=== PATIENT | female | born 1970 | race Two or more races ===

== ENCOUNTER 2018-03-19 10:00 | Emergency (ER) | payer OTHER ==
[2018-03-19 10:15] VITALS: BP 128/78; PULSE 87; TEMP 97.5; BMI 25.6
[2018-03-19] MEDS ORDERED: TETANUS AND DIPHTHERIA TOXOID 0.5 ML DISP.SYRIN IM ONE (11:30)
--- NOTE | 2018-03-19 11:34 | PDOC ---
History of Present Illness <Deshawn Mills - Last Filed: 03/19/18 11:34> <Janeen Ha - Last Filed: 03/19/18 11:50> - General Chief Complaint: Laceration Stated Complaint: LACERATION Time Seen by Provider: 03/19/18 10:39 Past History - Past Medical History COPD: No Other medical history: Pt denies - Suicide/Smoking/Psychosocial Hx Smoking History: Never smoked Have you smoked in the past 12 months: No Information on smoking cessation initiated: No Hx Alcohol Use: No Drug/Substance Use Hx: No Substance Use Type: None <Deshawn Mills - Last Filed: 03/19/18 11:34> <Janeen Ha - Last Filed: 03/19/18 11:50> - Past Medical History Allergies/Adverse Reactions: Allergies Allergy/AdvReac Type Severity Reaction Status Date / Time No Known Allergies Allergy Verified 03/19/18 10:10 Home Medications: Ambulatory Orders NK [No Known Home Medication] 02/19/16 *Physical Exam - Vital Signs Last Vital Signs Temp Pulse Resp BP Pulse Ox 97.5 F L 87 18 128/78 100 03/19/18 10:12 03/19/18 10:12 03/19/18 10:12 03/19/18 10:12 03/19/18 10:12 <Deshawn Mills - Last Filed: 03/19/18 11:34> - Vital Signs Last Vital Signs Temp Pulse Resp BP Pulse Ox 97.5 F L 87 18 128/78 100 03/19/18 10:12 03/19/18 10:12 03/19/18 10:12 03/19/18 10:12 03/19/18 10:12 <Janeen Ha - Last Filed: 03/19/18 11:50> Medical Decision Making - Medical Decision Making 03/19/18 11:49 pt sutured by ER resident Deshawn supervised by . <Janeen Ha - Last Filed: 03/19/18 11:50> *DC/Admit/Observation/Transfer <Deshawn Mills - Last Filed: 03/19/18 11:34> <Janeen Ha - Last Filed: 03/19/18 11:50> Diagnosis at time of Disposition: Thumb laceration Qualifiers: Encounter type: initial encounter Damage to nail status: without damage Foreign body presence: without foreign body Laterality: left Qualified Code(s): S61.012A - Laceration without foreign body of left thumb without damage to nail , initial encounter - Discharge Dispostion Disposition: HOME Condition at time of disposition: Improved - Referrals Referrals: Waylon Turner MD [Primary Care Provider] - Sunil Bae MD [Staff Physician] - - Patient Instructions Printed Discharge Instructions: DI for Laceration Repair Additional Instructions: keep clean and dry do not get wet remove the dressing in 2 days then gently clean with soap and water on a cotton ball, do not submerge in water apply a thin layer of antibiotic ointment such as bacitracin once a day and cover with bandaid return in 10 days for suture removal follow with the hand specialist for any concerns return to ER for any redness, increased pain, streaking up the hand or any other concerns - Post Discharge Activity
== END 2018-03-19 11:52 | disposition home or self-care (01) ==
LOC: JERFT 10:00
PROC: 0JQK0ZZ Repair Left Hand Subcutaneous Tissue and Fascia, Open Approach (ICD-10-PCS; principal; 2018-03-19)
DX: S61.012A Laceration without foreign body of left thumb without damage to nail, initial encounter (principal); W26.0XXA Contact with knife, initial encounter; Y93.G1 Activity, food preparation and clean up; Y92.018 Other place in single-family (private) house as the place of occurrence of the external cause; Y99.8 Other external cause status
CPT/HCPCS: 99281-25

== ENCOUNTER 2020-03-05 19:53 | Emergency (ER) | payer OTHER ==
[2020-03-05 19:57] VITALS: BP 114/74; PULSE 85; TEMP 98.4; BMI 27.8
--- NOTE | 2020-03-05 19:57 | PDOC ---
Rapid Medical Evaluation Chief Complaint: Pain Time Seen by Provider: 03/05/20 19:55 Medical Evaluation: Allergies Allergy/AdvReac Type Severity Reaction Status Date / Time No Known Allergies Allergy Verified 03/19/18 10:10 03/05/20 19:55 I have performed a brief in-person evaluation of this patient. The patient presents with a chief complaint of: RT wrist pain x 5 days w/o trauma. h/o carpal tunnel surgery in rt wrist. pt did not take anything for pain Pertinent physical exam findings: ttp to ulnar aspect of rt wrist. no swelling. I have ordered the following: Rt wrist X-ray The patient will proceed to the ED for further evaluation. Discharge Disposition - Diagnosis Right wrist pain - Discharge Dispostion Condition at time of disposition: Stable - Referrals - Patient Instructions - Post Discharge Activity
[2020-03-05] MEDS ORDERED: IBUPROFEN 600 MG TABLET (FP) PO ONE ×2 (20:47→20:50)
--- NOTE | 2020-03-05 20:52 | PDOC ---
History of Present Illness - General Chief Complaint: Pain Stated Complaint: R WRIST PAIN Time Seen by Provider: 03/05/20 19:55 History Source: Patient Exam Limitations: No Limitations - History of Present Illness Initial Comments: 03/05/20 20:47 HISTORY OF PRESENT ILLNESS: 50-year-old RHD woman past medical history of carpal tunnel syndrome status post surgery x2 presents emergency department for evaluation of atraumatic right wrist pain worsening over the past 4 days. Patient reports pain came on and progressively worsened and is currently 10/10. She reports the pain worsens when she puts pressure laterally. Patient denies any change in range of motion. No recent travel or sick contacts. PAST MEDICAL HISTORY: Denies past medical history SURGICAL HISTORY: Denies ALLERGIES: No known drug allergies REVIEW OF SYSTEMS General/Constitutional: Denies fever or chills. Denies weakness, weight change. HEENT: Denies change in vision. Denies ear pain or discharge. Denies sore throat. Cardiovascular: Denies chest pain or shortness of breath. Respiratory: Denies cough, wheezing, or hemoptysis. Gastrointestinal: Denies nausea, vomiting, diarrhea or constipation. Denies rectal bleeding. Genitourinary: Denies dysuria, frequency, or change in urination. Musculoskeletal: See HPI Skin and breasts: Denies rash or easy bruising. Neurologic: Denies headache, vertigo, loss of consciousness, or loss of sensation. Psychiatric: Denies depression or anxiety. Endocrine: Denies increased thirst. Denies abnormal weight change. Hematologic/Lymphatic: Denies anemia, easy bleeding, or history of blood clots. Allergic/Immunologic: Denies hives or skin allergy. Denies latex allergy. PHYSICAL EXAM General Appearance: Well-appearing, appropriately dressed. No apparent distre ss, no intoxication. Vascular Pulses: Radial (R): 2+, radial (L): 2+ Musculoskeletal/Extremities: Normal inspection. FAROM of all extremities, normal capillary refill. Pelvis Stable. No CVA tenderness. No tenderness to extremities, pedal edema, swelling, erythema or deformity. Negative Tinel's and Phalen tests. Neurovascularly intact. Integumentary: Appropriate color, dry, warm. No cyanosis, erythema, jaundice or rash 03/05/20 20:55 Past History - Medical History Allergies/Adverse Reactions: Allergies Allergy/AdvReac Type Severity Reaction Status Date / Time No Known Allergies Allergy Verified 03/05/20 19:57 Home Medications: Ambulatory Orders NK [No Known Home Medication] 02/19/16 COPD: No - Psycho-Social/Smoking History Smoking History: Never smoked Have you smoked in the past 12 months: No - Substance Abuse Hx (Audit-C & DAST Scrn) How often the patient has a drink containing alcohol: Never Score: In Men: 4 or > Positive; In Women: 3 or > Positive: 0 Screen Result (Pos requires Nsg. Audit-10AR): Negative In the last yr the pt used illegal drug/Rx for NonMed reason: No Score: Yes response is considered Positive: 0 Screen Result (Positive result requires Nsg. DAST-10): Negative *Physical Exam - Vital Signs Last Vital Signs Temp Pulse Resp BP Pulse Ox 98.4 F 85 18 114/74 97 03/05/20 19:56 03/05/20 19:56 03/05/20 19:56 03/05/20 19:56 03/05/20 19:56 Medical Decision Making - Medical Decision Making 03/05/20 20:49 A/P: 50-year-old woman with atraumatic right wrist pain for 4 days No bony tenderness, deformity, crepitus or step-off present upon palpation of the bones of the right hand and wrist. No snuffbox tenderness elicited Negative Phalen and Tinell's's tests X-rays performed at [facility] as interpreted by me: No acute fractures or dislocations present. Narrowing of the mortise at the radius. Motrin 600 mg orally now Haider wrap Discharge home to follow-up with her hand surgeon I discussed the physical exam findings, ancillary test results and final diagnoses with the patient. I answered all of the patient's questions. The patient was satisfied with the care received and felt comfortable with the discharge plan and treatment plan. The patient will call their primary care physician within 24 hours to arrange follow-up and will return to the Emergency Department with any new, persistent or worsening symptoms. Portions of this note have been documented using voice recognition software. As a result, errors may occur in the check pilot process. Effort has been made to correct all grammatical and check pilot error, but some may have been missed which may produce sporadic inaccurate check pilot or nonsensical phrases. Discharge - Discharge Information Problems reviewed: Yes Clinical Impression/Diagnosis: Right wrist pain Condition: Stable Disposition: HOME - Admission No - Follow up/Referral Referrals: Waylon Turner MD [Primary Care Provider] - - Patient Discharge Instructions Additional Instructions: Your emergency department visit is incomplete until you follow-up with your regular doctor. Take Tylenol 2-500 mg tablets every 6 hours as needed for pain. Take Motrin 3-200 mg tablets every 6 hours as needed for pain. These medications do not require a prescription as they are [id number]. Apply ice to affected areas to help relieve pain. Do not leave ice on for more than 20 minutes at a time. Return to the emergency department for any new or worsening symptoms. Thank you very much for choosing us to provide your emergent health care needs. - Post Discharge Activity
== END 2020-03-05 20:55 | disposition home or self-care (01) ==
LOC: JERFT 19:53
DX: M25.531 Pain in right wrist (principal)
CPT/HCPCS: 73110-TC-RT-FY; 99284-25

== ENCOUNTER 2021-05-08 08:57 | Emergency (ER) | payer OTHER ==
[2021-05-08 09:20] VITALS: BMI 26.4
[2021-05-08] MEDS ORDERED: ACETAMINOPHEN 500 MG TABLET (FP) ONE (09:24)
[2021-05-08] MEDS ORDERED: ACETAMINOPHEN 325 MG TABLET (FP) PO ONE ×2 (09:40→15:55)
[2021-05-08] MEDS ORDERED: ONDANSETRON 4 MG/2 ML VIAL IVPUSH ONE (10:17)
[2021-05-08] MEDS ORDERED: SODIUM CHLORIDE 1,000 ML IV STA ×2 (10:17→13:04)
[2021-05-08] MEDS ORDERED: ONDANSETRON 4 MG/2 ML VIAL ONE (10:40)
[2021-05-08 11:30] LABS: BASO % 0.2 % (0-2.0); HEMATOCRIT 36.1 % (32.4-45.2); HEMOGLOBIN 12.5 GM/dL (10.7-15.3); LYMPH % 5.3 % (8-40); MCH 30.4 pg (25.7-33.7); MCHC 34.7 g/dl (32.0-36.0); MEAN CELL VOLUME 87.5 fl (80-96); MEAN PLT VOLUME 9.3 fl (7.5-11.1); NEUT % 90.5 % (42.8-82.8); PLATELET COUNT 163 10^3/uL (134-434); RBC 4.13 M/mm3 (3.60-5.2); WHITE BLOOD COUNT 6.7 K/mm3 (4.0-10.0)
[2021-05-08 11:53] LABS: CHLORIDE 107 mmol/L (98-107); SODIUM 138 mmol/L (136-145)
[2021-05-08 11:55] LABS: ALBUMIN 3.8 g/dl (3.4-5.0); ANION GAP 7 MMOL/L (8-16); BLOOD UREA NITROGEN 17.6 mg/dL (7-18); CALCIUM 8.6 mg/dL (8.5-10.1); CO2 25 mmol/L (21-32); GLUCOSE,RANDOM 102 mg/dL (74-106)
[2021-05-08 11:58] LABS: SGOT/AST 17 U/L (15-37); SGPT/ALT 19 U/L (13-61)
[2021-05-08 11:59] LABS: CREATININE 0.7 mg/dL (0.55-1.3)
[2021-05-08 12:00] LABS: BILIRUBIN,TOTAL 0.5 mg/dL (0.2-1); TOT PROT 7.5 g/dl (6.4-8.2)
[2021-05-08 12:01] LABS: ALK PHOS 85 U/L (45-117)
[2021-05-08 12:21] LABS: URINE APPEARANCE CLOUDY; URINE BILIRUBIN NEGATIVE (NEGATIVE); URINE COLOR YELLOW; URINE GLUCOSE (UA) NEGATIVE (NEGATIVE); URINE KETONE NEGATIVE (NEGATIVE); URINE LEUK ESTERASE NEGATIVE (NEGATIVE); URINE NITRITE NEGATIVE (NEGATIVE); URINE PROTEIN NEGATIVE (NEGATIVE); URINE UROBILINOGEN 0.2 mg/dL (0.2-1.0)
[2021-05-08 12:24] LABS: EPI CELLS 3 /uL (0-25.1); HYALINE CASTS 1 /uL (0-3.1); URINE BACTERIA 2 /uL (0-1359); URINE RBC 8 /uL (0-23.9); URINE WBC 5 /uL (0-25.8)
[2021-05-08] MEDS ORDERED: METOCLOPRAMIDE HCL INJECTION 10 MG/2 ML VIAL IVPB ONE (13:04)
[2021-05-08] MEDS ORDERED: IBUPROFEN 600 MG TABLET (FP) PO ONE ×2 (13:05→13:51)
[2021-05-08] MEDS ORDERED: METOCLOPRAMIDE HCL INJECTION 10 MG/2 ML VIAL ONE (13:51)
[2021-05-08] MEDS ORDERED: ACETAMINOPHEN 325 MG TABLET (FP) ONE (16:15)
[2021-05-08 18:48] VITALS: BP 90/60; PULSE 96; TEMP 99.8
== END 2021-05-08 16:40 | disposition home or self-care (01) ==
LOC: JER 08:57
PROC: 3E033GC Introduction of Other Therapeutic Substance into Peripheral Vein, Percutaneous Approach (ICD-10-PCS; principal; 2021-05-08)
PROC: 3E033GC Introduction of Other Therapeutic Substance into Peripheral Vein, Percutaneous Approach (ICD-10-PCS; 2021-05-08)
PROC: 3E0337Z Introduction of Electrolytic and Water Balance Substance into Peripheral Vein, Percutaneous Approach (ICD-10-PCS; 2021-05-08)
PROC: 3E0337Z Introduction of Electrolytic and Water Balance Substance into Peripheral Vein, Percutaneous Approach (ICD-10-PCS; 2021-05-08)
DX: R51.9 Headache, unspecified (principal); M54.2 Cervicalgia; R50.9 Fever, unspecified; Z11.52 Encounter for screening for COVID-19
CPT/HCPCS: 36415; 80053; 81003; 82550; 84484; 85025; 87086; 93005; 93010; 96361; 96374; 96375; 99284-25; C9803; U0003; U0005

== ENCOUNTER 2021-07-19 05:06 | Day surgery (SDC) | payer OTHER ==
[2021-07-16 16:23] VITALS: BMI 27.3
[2021-07-19 11:07] VITALS: BP 108/74; PULSE 70; TEMP 97
== END 2021-07-19 11:30 | disposition home or self-care (01) ==
LOC: JASU-ENDO 05:06
PROVIDERS: ATTEND Internal Medicine Gastroenterology
PROC: 0DJD8ZZ Inspection of Lower Intestinal Tract, Via Natural or Artificial Opening Endoscopic (ICD-10-PCS; principal; 2021-07-19 10:15)
DX: Z12.11 Encounter for screening for malignant neoplasm of colon (principal); Z86.010 Personal history of colon polyps; Z83.71 Family history of colonic polyps